=== PATIENT | male | born 1995 | race African-American/Black ===

== ENCOUNTER 2023-06-09 08:03 | Outpatient (AMB) | payer BC, SELFPAY ==
--- NOTE | 2023-06-09 08:08 | A.OFFVIS_ITS ---
Intake Vital Signs 06/09/23 08:12 Height 5 ft 4 in Weight 279 lb 8 oz BMI 48.0 BP 122/82 Blood Pressure Location Lt brachial Position Sitting Pulse 90 Pulse Source Pulse Oximeter Pulse Oximetry (%) 97 Oxygen Delivery Method Room Air Intake Visit Reasons: [employer] SNORING - LVM Intake Note: NPV to be checked for Sleep Apnea,for DOT licences [employer] Supervisor Required: No Allergies Seasonal Allergies Allergy (Intermediate, Verified 06/09/23 08:10) Sneezing HPI HPI Comments History of Present Illness Details 28 y/o male patient with pre-diabetic pr esents for new in-person visit for sleep consultation. 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 He had physical done for his job and recommended to have sleep study due to larger neck size and high mallampati grade. Pt reports loud snoring and daytime sleepiness. He has difficulty to drive long distance (2-3 hrs driving) and uses Monster drink to stay awake. Pt reports that he had tonsillectomy 6 years ago, and it helped him to breathe much better. Sleep questionnaire: Have you ever been diagnosed with a sleep disorder? No. Have you ever had a sleep study in the past? No. Have you ever been treated for a sleep disorder? No. Do you take medications for a sleep disorder? No. Do you snore? Yes. Do you wake up gasping at night? No Do you have episodes of apneas? Yes. If yes, are they witnessed? Yes. Do you have episodes of nocturnal chest pain or dyspnea? No. Do you have difficulty initiating sleep? No. Do you have difficulty maintaining sleep? No. Do you wake up tired? Yes, sometimes. Do you have headaches upon awakening? No. Do you wake up with dry mouth or throat? No. Do you have GERD? No. Do you have nocturia? No. Do you have nocturnal leg cramps? No. Do you have symptoms of restless legs? Yes. Do you act out your dreams? No. Sleep hygiene questionnaire: What is your usual sleep routine? Usual bedtime is at 10 -11 pm; Usual wake up time is at 5 am. Do you take naps? Yes, sometimes. Is your sleep environment cool, dark, and quiet? Yes. Do you exercise? No. Do you take caffeine or other stimulants? Yes, Monster, coffee sometimes. Do you use electronics in bed? Yes. What is your work schedule? 6 am up to 9 pm Hypersomnolence questionnaire: Do you have daytime tiredness or fatigue? Yes. Do you easily fall asleep when inactive? Yes, when he drive long distance. Have you ever had episodes of sudden weakness? No. Have you ever had episodes of sudden weakness associated with strong emotions? No. PFSH Surgical History (Updated 06/09/23 @ 08:10 by Elayne Hopkins CMA) S/P tonsillectomy Family History (Updated 06/09/23 @ 08:12 by Elayne Hopkins CMA) Mother Diabetes Maternal Grandfather Diabetes Maternal Grandmother Diabetes Review of Systems Const All systems reviewed & are unremarkable except as noted in HPI and below ENT Reports Normal hearing present Neuro Reports Normal hearing present Physical Exam Vital Signs: Last Vital Signs Pulse 90 06/09/23 08:12 BP 122/82 06/09/23 08:12 Pulse Ox 97 06/09/23 08:12 Oxygen Delivery Method Room Air 06/09/23 08:12 BMI result Body Mass Index 48.0 Const General: cooperative Nutritional Appearance: obese Orientation/consciousness: patient oriented x3 HEENT Throat: Yes other (mallampati grade 4) Neck Neck: Yes full ROM and Yes supple Resp Effort & Inspection: normal respiratory effort and able to speak in complete sentences Neuro General: patient oriented x3 and gait normal Cranial nerves: Yes Bilaterally intact EOM present, Yes Normal facial strength present, Yes Midline tongue present, Yes Symmetric palate elevation present, Yes Normal hearing present, Yes Ability to bilaterally rotate head present and Yes Ability to bilaterally elevate shoulders present Cognition (Neuro): normal cognition Gait exam (Neuro): Normal gait present Motor exam (neuro): 5/5 motor strength present throughout, Pronator motor function not present and no tremor noted Psych Appearance: grossly normal Mental Status: mental status grossly normal Speech and movement: Normal speech and movement present Affect: normal affect Attitude: cooperative Assessment & Plan Assessment & Plan (1) Daytime sleepiness: Code(s): R40.0 - Somnolence (2) Loud snoring: Code(s): R06.83 - Snoring (3) Obesity, Class III, BMI 40-49.9 (morbid obesity): Code(s): E66.01 - Morbid (severe) obesity due to excess calories Plan Pt is advised to undergo in lab sleep study to assess for sleep apnea. Will f/u with pt after study to discuss results and appropriate treatment options. Sleep hygiene education provided, limit electronic use before bedtime. Wt reduction advised. Pt to call with any worsening concerns or questions. Orders: Orders RT PSG in-lab sleep titration Today E66.01 - Morbid (severe) obesity due to excess calories, R06.83 - Snoring, R40.0 - Somnolence, R73.03 - Prediabetes Coding Level of Care Code New Pt Level 4 (40523) Diagnoses Daytime sleepiness R40.0 Loud snoring R06.83 Obesity, Class III, BMI 40-49.9 (morbid obesity) E66.01
[2023-06-09 08:12] VITALS: BP 122/82; PULSE 90; O2SAT 97; BMI 48.0
== END 2023-06-09 08:39 | disposition home or self-care (01) ==
PROVIDERS: PCP Physician Assistant; Visit Provider Nurse Practitioner Family
DX: R40.0 Somnolence (principal); R06.83 Snoring; E66.01 Morbid (severe) obesity due to excess calories
CPT/HCPCS: 99204

== ENCOUNTER → 2023-06-09 08:03 | Outpatient (BNVA) | payer BC, SELFPAY | PROVIDERS: PCP Physician Assistant; Visit Provider Nurse Practitioner Family ==

== ENCOUNTER → 2023-06-29 20:30 | Outpatient (REF) | payer BC, SELFPAY | LOC: HO.SL 20:30 | PROVIDERS: Visit Provider Nurse Practitioner Family | DX: G47.33 Obstructive sleep apnea (adult) (pediatric) (principal); E66.01 Morbid (severe) obesity due to excess calories; R06.83 Snoring; R73.03 Prediabetes; R40.0 Somnolence | CPT/HCPCS: 95811 ==

== ENCOUNTER → 2023-06-30 03:02 | Outpatient (BNV) | payer BC, SELFPAY | PROVIDERS: Visit Provider Psychiatry & Neurology Neurology | DX: G47.33 Obstructive sleep apnea (adult) (pediatric) (principal) | CPT/HCPCS: 95811 ==

== ENCOUNTER 2023-10-07 10:44 | Outpatient (AMB) | payer BC, SELFPAY ==
--- NOTE | 2023-10-07 10:59 | MHC.OFFVIS ---
Intake Vital Signs 10/07/23 11:04 Height 5 ft 4 in Weight 278 lb 2 oz BMI 47.7 BP 124/80 Blood Pressure Location Lt brachial Position Sitting Pulse 91 Pulse Source Pulse Oximeter Pulse Oximetry (%) 96 Oxygen Delivery Method Room Air Intake Visit Reasons: 3m f/u SNORING - CONF Intake Note: Patient presents for 3 month f/u. Allergies Seasonal Allergies Allergy (Intermediate, Verified 10/07/23 11:03) Sneezing HPI HPI Comments History of Present Illness Details 28 y/o male patient presents for follow up of sleep study. The PSG sleep study result was significant for a severe degree of sleep apnea. The AHI was 26/hr and oxygen glenn was 84%. APAP [id number] ordered. Pt reports his insurance did not cover CPAP, but he paid deposit and hold for CPAP order now. He states that he had financial difficulty over the last couple of month, but will pay the monthly payment and start CPAP soon. Pt states that he practice sleep hygiene, and tries to lose wt. [facility], [facility] Surgical History S/P tonsillectomy Family History Mother Diabetes Maternal Grandfather Diabetes Maternal Grandmother Diabetes Review of Systems Const All systems reviewed & are unremarkable except as noted in HPI and below ENT Reports Normal hearing present Neuro Reports Normal hearing present Physical Exam Vital Signs: Last Vital Signs Pulse 91 10/07/23 11:04 BP 124/80 10/07/23 11:04 Pulse Ox 96 10/07/23 11:04 Oxygen Delivery Method Room Air 10/07/23 11:04 BMI result Body Mass Index 47.7 Const General: cooperative Nutritional Appearance: obese Orientation/consciousness: patient oriented x3 HEENT Throat: Yes other (mallampati grade 4) Neck Neck: Yes full ROM and Yes supple Resp Effort & Inspection: normal respiratory effort and able to speak in complete sentences Neuro General: patient oriented x3 and gait normal Cranial nerves: Yes Bilaterally intact EOM present, Yes Normal facial strength present, Yes Midline tongue present, Yes Symmetric palate elevation present, Yes Normal hearing present, Yes Ability to bilaterally rotate head present and Yes Ability to bilaterally elevate shoulders present Cognition (Neuro): normal cognition Gait exam (Neuro): Normal gait present Motor exam (neuro): 5/5 motor strength present throughout, Pronator motor function not present and no tremor noted Psych Appearance: grossly normal Mental Status: mental status grossly normal Speech and movement: Normal speech and movement present Affect: normal affect Attitude: cooperative Assessment & Plan Assessment & Plan (1) ALIDA (obstructive sleep apnea): Comment: Severe degree of sleep apnea. The AHI was 26/hr and oxygen glenn was 84%. Code(s): G47.33 - Obstructive sleep apnea (adult) (pediatric) Plan He will start APAP 5-20 cmH2O soon, the order is on hold. Stressed compliance, use CPAP nightly and more than 4 hrs. Continue to practice sleep hygiene. Wt reduction advised. Coding Level of Care Code Est Pt Level 3 (05647) Diagnoses ALIDA (obstructive sleep apnea) G47.33
[2023-10-07 11:04] VITALS: BP 124/80; PULSE 91; O2SAT 96; BMI 47.7
== END 2023-10-07 11:24 | disposition home or self-care (01) ==
PROVIDERS: PCP Physician Assistant; Visit Provider Nurse Practitioner Family
DX: G47.33 Obstructive sleep apnea (adult) (pediatric) (principal)
CPT/HCPCS: 99213

== ENCOUNTER → 2023-10-07 10:44 | Outpatient (BNVA) | payer BC, SELFPAY | PROVIDERS: PCP Physician Assistant; Visit Provider Nurse Practitioner Family | DX: E66.01 Morbid (severe) obesity due to excess calories (principal); R06.83 Snoring; R73.03 Prediabetes; R40.0 Somnolence ==

== ENCOUNTER 2024-09-10 14:47 | Outpatient (AMB) | payer BC, SELFPAY ==
--- NOTE | 2024-09-10 14:55 | A.OFFVIS_ITS ---
Vital Signs 09/10/24 14:56 Height 5 ft 4 in Weight 274 lb BMI 47.0 BP 140/90 H Blood Pressure Location Rt brachial Position Sitting Pulse 92 Pulse Source Pulse Oximeter Pulse Oximetry (%) 96 Oxygen Delivery Method Room Air Intake Visit Reasons: follow up Intake Note: Patient presents for follow up Allergies Seasonal Allergies Allergy (Intermediate, Verified 09/10/24 14:57) Sneezing HPI Comments Details: 29 y/o male patient presents for follow up of sleep study.His last visit was in Sep 2023. Jun 2023 -The PSG sleep study result was significant for a severe degree of sleep apnea. The AHI was 26/hr and oxygen glenn was 84%. Due to him moving he was unable to get CPAP and his insurance did not cover either. Now he also has a HSA account and wants to try CPAP. Clinically he reports snoring , poor sleep and daytime fatigue. [facility] Surgical History S/P tonsillectomy Family History Mother Diabetes Maternal Grandfather Diabetes Maternal Grandmother Diabetes Review of Systems ENT Reports Normal hearing present Neuro Reports Normal hearing present Physical Exam Vital Signs: Last Vital Signs Pulse 92 09/10/24 14:56 BP 140/90 H 09/10/24 14:56 Pulse Ox 96 09/10/24 14:56 Oxygen Delivery Method Room Air 09/10/24 14:56 BMI result Body Mass Index 47.0 Const General: cooperative Nutritional Appearance: obese Orientation/consciousness: patient oriented x3 HEENT Throat: Yes other (mallampati grade 4) Neck Neck: Yes full ROM and Yes supple Resp Effort & Inspection: normal respiratory effort and able to speak in complete sentences Neuro General: patient oriented x3 and gait normal Cranial nerves: Yes Bilaterally intact EOM present, Yes Normal facial strength present, Yes Midline tongue present, Yes Symmetric palate elevation present, Yes Normal hearing present, Yes Ability to bilaterally rotate head present and Yes Ability to bilaterally elevate shoulders present Cognition (Neuro): normal cognition Gait exam (Neuro): Normal gait present Motor exam (neuro): 5/5 motor strength present throughout, Pronator motor function not present and no tremor noted Assessment & Plan Assessment & Plan (1) ALIDA (obstructive sleep apnea): Comment: Severe degree of sleep apnea. The AHI was 26/hr and oxygen glenn was 84%. Code(s): G47.33 - Obstructive sleep apnea (adult) (pediatric) Category: Medical Plan Start APAP 5-20 cmH2O Stressed compliance, use CPAP nightly and more than 4 hrs. Continue to practice sleep hygiene. Wt reduction advised. Coding Level of Care Code Est Pt Level 4 (88315) Diagnoses ALIDA (obstructive sleep apnea) G47.33
[2024-09-10 14:56] VITALS: BP 140/90; PULSE 92; O2SAT 96; BMI 47.0
== END 2024-09-10 15:25 | disposition home or self-care (01) ==
PROVIDERS: PCP Physician Assistant; Visit Provider Psychiatry & Neurology Neurology
DX: G47.33 Obstructive sleep apnea (adult) (pediatric) (principal)
CPT/HCPCS: 99214

== ENCOUNTER 2024-11-08 14:22 | Outpatient (AMB) | payer BC, SELFPAY ==
--- NOTE | 2024-11-08 14:30 | A.OFFVIS_ITS ---
Vital Signs 11/08/24 14:33 Height 5 ft 4 in Weight 281 lb BMI 48.2 BP 140/86 H Blood Pressure Location Rt brachial Position Sitting Pulse 86 Pulse Source Pulse Oximeter Pulse Oximetry (%) 97 Oxygen Delivery Method Room Air Intake Visit Reasons: follow up Intake Note: Patient presents for follow up ALIDA. Veterans Service Representative Required: No Accompanied by: Self / Same As Patient Allergies Seasonal Allergies Allergy (Intermediate, Verified 11/08/24 14:35) Sneezing HPI Comments Details: 29 y/o male patient presents for follow up of sleep study. Jun 2023 -The PSG sleep study result was significant for a severe degree of sleep apnea. The AHI was 26/hr and oxygen glenn was 84%. He reports snoring, which has improved since he started using CPAP consistently. He is feeling a difference in level of energy, and is more energetic. He no longer falls asleep in long car rides and is not napping during. 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 He washes the nasal mask, replaces the filters and supplies. His pressures are good, temperatures are good. Denies morning headaches and RLS. He is taking Ozempic 2mg subcut. weekly and seeing weight management to learn better meal preparation strategies and less fast food on the go. ALIDA Compliance Report on [employer]: Sep 27, 2024 - Nov 08 2024 Total Avg. use 6 hours and 47 min and total days used 75% Leaks are 0.6 L/min Press are 7.6cmH20 AHI is 1.2 PFSH Surgical History S/P tonsillectomy Family History Mother Diabetes Maternal Grandfather Diabetes Maternal Grandmother Diabetes Review of Systems ENT Reports Normal hearing present Neuro Reports Normal hearing present Physical Exam Vital Signs: Last Vital Signs Pulse 86 11/08/24 14:33 BP 140/86 H 11/08/24 14:33 Pulse Ox 97 11/08/24 14:33 Oxygen Delivery Method Room Air 11/08/24 14:33 BMI result Body Mass Index 48.2 Const General: cooperative Nutritional Appearance: obese Orientation/consciousness: patient oriented x3 HEENT Throat: Yes other (mallampati grade 4) Neck Neck: Yes full ROM and Yes supple Resp Effort & Inspection: normal respiratory effort and able to speak in complete sentences Neuro General: patient oriented x3 and gait normal Cranial nerves: Yes Bilaterally intact EOM present, Yes Normal facial strength present, Yes Midline tongue present, Yes Symmetric palate elevation present, Yes Normal hearing present, Yes Ability to bilaterally rotate head present and Yes Ability to bilaterally elevate shoulders present Cognition (Neuro): normal cognition Gait exam (Neuro): Normal gait present Motor exam (neuro): 5/5 motor strength present throughout, Pronator motor function not present and no tremor noted Results Reviewed Results Reviewed: ALIDA Compliance Report on [employer]: Sep 27, 2024 - Nov 08 2024 Total Avg. use 6 hours and 47 min and total days used 75% Leaks are 0.6 L/min Press are 7.6cmH20 AHI is 1.2 Assessment & Plan Assessment & Plan (1) ALIDA (obstructive sleep apnea): Comment: Severe degree of sleep apnea. The AHI was 26/hr and oxygen glenn was 84%. Code(s): G47.33 - Obstructive sleep apnea (adult) (pediatric) Category: Medical (2) Obesity, Class III, BMI 40-49.9 (morbid obesity): Onset Date: ~11/09/24 Code(s): E66.01 - Morbid (severe) obesity due to excess calories Category: Medical Plan F/U in 6 months Obstructive Sleep apnea [employer] on [employer]. Sleep Hygiene provided BMI is elevated continue on Ozempic 2mg subcutaneous weekly. F/u with weight management, and walking daily. Patient Instructions: Sleep Hygiene: Sleep in a dark room, temperatues below 68 degrees, no devices in bed, limit fluids 2-4 hours prior to bedtime. Continue CPAP compliance daily and more than 6 hours per night. Wash mask, change filters and replace tubing, fill machine with distilled water as needed. Monitor usage data on your [employer]. Coding Level of Care Code Est Pt Level 4 (09040) Diagnoses ALIDA (obstructive sleep apnea) G47.33 Obesity, Class III, BMI 40-49.9 (morbid obesity) E66.01 Time Spent (min) 20
[2024-11-08 14:33] VITALS: BP 140/86; PULSE 86; O2SAT 97; BMI 48.2
== END 2024-11-08 15:04 | disposition home or self-care (01) ==
LOC: HO.HSMS 14:23
PROVIDERS: PCP Physician Assistant; Visit Provider Physician Assistant Medical
DX: G47.33 Obstructive sleep apnea (adult) (pediatric) (principal); E66.01 Morbid (severe) obesity due to excess calories
CPT/HCPCS: 99214

== ENCOUNTER → 2024-11-08 14:22 | Outpatient (BNVA) | payer BC, SELFPAY | PROVIDERS: PCP Physician Assistant; Visit Provider Physician Assistant Medical ==

== ENCOUNTER 2025-05-13 09:56 | Outpatient (AMB) | payer BC, SELFPAY ==
--- OUTSIDE RECORDS SUMMARY | 2025-05-10 08:40 | XMS_ITS | Encounter Summary ---
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 Phone Shannan Silva PA-C Primary Care Provider [phone] Reason for Visit * Reason Comments Complete Physical Exam Encounter Details Date Type Department Care Team ([facility] Contact Info) Description 05/10/2025 8:40 AM EDT Office Visit [address] [phone] Shannan Silva PA-C [address] [place] [phone] Social History Tobacco Use Types Packs/Day Years Used Date Smoking Tobacco: Former Passive Smoke Exposure: Never Smokeless Tobacco: Former Tobacco Cessation:Counseling Given: Yes Alcohol Use Standard Drinks/Week Comments Yes 2 (1 standard drink = 0.6 oz pur e alcohol) Social Connections Answer Date Recorded Connectedness 1 09/14/2023 Financial Resource Strain Answer Date R ecorded Financial Resource Strain 1 2023 Stress Answer Date Recorded Stress 1 09/14/2023 Physical Activity Answer Date Recorded Physical Activity 0 04/21/2019 Food Insecurity Answer Date Recorded Food 1 09/14/2023 Transportation Needs Answer Date Record ed Transportation 1 09/14/2023 Housing Stability Answer Date Recorded Housing 1 09/14/2023 Safety and Environment Answer Date Terrance rded Safety 0 12/21/2022 Utilities Answer Date Recorded Utilities 1 09/14/2023 Employment Answer Date Recorded Employment 0 04/21/2019 Sex and Gender Information Value Date Recorded Sex Assigned at Male 10/09/2018 6:48 AM PST Legal Sex Male 7:04 AM PDT Gender Identity Male 10/09/2018 6:48 AM PST Sexual Orientation Straight 10/09/2018 6: 48 AM PST documented as of this encounter Last Filed Vital Signs Vital Sign Reading Time Taken Comments Blood Pressure 112/74 05/10/2025 8:49 AM EDT Pulse 99 05/10/2025 8:49 AM EDT Temperature 37.6 C (99.7 F) 05/10/2025 8:49 AM EDT Respiratory Rate 16 05/10/2025 8:49 AM EDT Oxygen Saturation 94% 05/10/2025 8:49 AM EDT Inhaled Oxygen Concentration - - Weight 122.5 kg (270 lb) 05/10/2025 8:49 AM EDT Height 162.6 cm (5' 4 ) 05/10/2025 8:49 AM EDT Body Mass Index 46.35 05/10/2025 8:49 AM EDT documented in this encounter Miscellaneous Notes * Patient Instructions - Shannan Silva PA-C - 05/10/2025 8:55 AM EDT If you are not able to keep your appointment please call 24-48 hours before your appointment to cancel or reschedule. Health Maintenance Due Topic Date Due Anxiety Screening Never done Imm-Pneumococcal (2 of 2 - PCV) 07/30/2022 Dental Prophy 02/26/2023 Dental Examination 08/28/2023 Urine Albumin Creatinine Ratio Screening 09/14/2024 Diabetes Foot Exam 02/20/2025 Annual Wellness (Adult): Indicated (All Coverage) 02/20/2025 Mid-RRSBX-72 ( - season) Never done Imm-Influenza (1) 04/29/2025 documented in this encounter Plan of Treatment Not on file documented as of this encounter Procedures Procedure Name Priority Date/Time Associated Diagnosis Comments TSH W/RFLX FREE T4 Routine 05/10/2025 9: 10 AM EDT Routine general medical examination at a health care facility Mild vitamin D deficiency Non morbid obesity Type 2 diabetes mellitus without complication, without long-term current use of insulin ([facility]) TSH elevation 01/2016 MICROALBUMIN/CREATININ E RATIO, URINE, RANDOM Routine 05/10/2025 9:10 AM EDT Routine general medical examination at a health care facility Mild vitamin D deficiency Non morbid obesity Type 2 diabetes mellitus without complication, without long-term current use of insulin ([facility]) TSH elevation 01/2016 BLOOD COUNT COMPLETE AUTO&AUTO DIFRNTL WBC Routine 05/10/2025 9:10 AM EDT Routine general medical examination at a health care facility Mild vitamin D deficiency Non morbid obesity Type 2 diabetes mellitus without complication, without long-term current use of insulin ([facility]) TSH elevation 01/2016 HEMOGLOBIN GLYCOSYLATED A1C Routine 05/10/2025 9:10 AM EDT Routine general medical examination at a health care facility Mild vitamin D deficiency Non morbid obesity Type 2 diabetes mellitus without complication, without long-term current use of insulin ([facility]) TSH elevation 01/2016 25 HYDROXY INCLUDES FRACTIONS IF PERFORMED Routine 05/10/2025 9:10 AM EDT Routine general medical examination at a health care facility Mild vitamin D deficiency Non morbid obesity Type 2 diabetes mellitus without complication, without long-term current use of insulin ([facility]) TSH elevation 01/2016 LIPID PANEL Routine 05/10/2025 9:10 AM EDT Routine general medical examination at a health care facility Mild vitamin D deficiency Non morbid obesity Type 2 diabetes mellitus without complication, without long-term current use of insulin ([facility]) TSH elevation 01/2016 COMPREHENSIVE METABOLIC PANEL Routine 05/10/2025 9:10 AM EDT Routine general medical examination at a health care facility Mild vitamin D deficiency Non morbid obesity Type 2 diabetes mellitus without complication, without long-term current use of insulin ([facility]) TSH elevation 01/2016 documented in this encounter Results * (ABNORMAL) Vitamin D, 25-Hydroxy Routine (05/10/2025 9:10 AM EDT) VITAMIN D, 25-OH, TOTAL 14(L) 30 - 100 ng/mL 05/11/2025 6:33 AM EDT [employer] Blood Blood / Unknown 05/10/2025 9 :10 AM EDT 05/11/2025 4:09 AM EDT [employer]ative [employer] - 05/11/2025 6:57 AM EDT FASTING:YES Vitamin D Status 25-OH Vitamin D: . Deficiency: <20 ng/mL Insufficiency: 20 - 29 ng/mL Optimal: > or = 30 ng/mL . For 25-OH Vitamin D testing on patients on D2-supplementation and patients for whom quantitation of D2 and D3 fractions is required, the QuestAssureD(TM) 25-OH VIT D, (D2,D3), LC/MS/MS is recommended: order code [id number] (patients >2yrs). . See Note 1 . Note 1 . For additional information, please refer to http://education.[employer]/faq/JKD798 (This link is being provided for informational/ educational purposes only.) us Shannan Silva PA-C LAB - BLOOD DRAW Final Resul t [employer] [address] [place] [address], [facility] [address] [phone] * (ABNORMAL) BLOOD COUNT COMPLETE AUTO&AUTO DIFRNTL WBC Routine (05/10/2025 9:10 AM EDT) WHITE BLOOD CELL COUNT 7.4 3.8 - 10.8 Thousand/ uL 05/11/2025 3:08 AM EDT [facility] RED BLOOD CELL COUNT 4.87 4.20 - 5.80 Million/u L 05/11/2025 3:08 AM EDT [employer] [facility] HEMOGLOBIN 14.3 13.2 - 17.1 g/dL 05/11/2025 3:08 AM EDT [facility] HEMATOCRIT 43.3 38.5 - 50.0 % 05/11/2025 3:08 AM EDT [facility] MCV 88.9 80.0 - 100.0 fL 05/11/2025 3:08 AM EDT [facility] MCH 29.4 27.0 - 33.0 pg 05/11/2025 3:08 AM [employer] [facility] MCHC 33.0 32.0 - 36.0 g/dL 05/11/2025 3:08 AM [employer] [facility] RDW 12.9 11.0 - 15.0 % 05/11/2025 3:08 AM [employer] [facility] PLATELET COUNT 437(H) 140 - 400 Thousand/ uL 05/11/2025 3:08 AM [employer] [facility] MPV 9.7 7.5 - 12.5 fL 05/11/2025 3:08 AM [employer] [facility] ABSOLUTE NEUTROPHILS 3,774 1,500 - 7,800 cells/uL 05/11/2025 3:08 AM [employer] [facility] ABSOLUTE LYMPHOCYTES 2,842 850 - 3,900 cells/uL 05/11/2025 3:08 AM [employer] [facility] ABSOLUTE MONOCYTES 503 200 - 950 cells/uL 05/11/2025 3:08 AM [employer] [facility] ABSOLUTE EOSINOPHILS 222 15 - 500 cells/uL 05/11/2025 3:08 AM [employer] [facility] ABSOLUTE BASOPHILS 59 0 - 200 cells/uL 05/11/2025 3:08 AM [employer] [facility] NEUTROPHILS PCT 51 % 3:08 AM [employer] [facility] LYMPHOCYTES 38.4 % 05/11/2025 3:08 AM [employer] MONOCYTES 6.8 % 05/11/2025 3:08 AM [employer] [facility] EOSINOPHILS 3.0 % 05/11/2025 3:08 AM [employer] [facility] BASOPHILS 0.8 % 05/11/2025 3:08 AM [employer] [facility] Blood Blood / Unknown 05/10/2025 9 :10 AM EDT 05/11/2025 2:53 AM EDT [facility] - 05/11/2025 3:09 AM EDT FASTING:YES For adults, a slight decrease in the calculated MCHC value (in the range of 30 to 32 g/dL) is most likely not clinically significant; however, it should be interpreted with caution in correlation with other red cell parameters and the patient's clinical condition. us Shannan Silva PA-C LAB - BLOOD DRAW Final Resul t [facility] [address] [address], [employer] [facility] [address] [place] [address] * (ABNORMAL) COMPREHENSIVE METABOLIC PANEL Routine (05/10/2025 9:10 AM EDT) Pathologist [facility] GLUCOSE 118(H) 65 - 99 mg/dL 05/11/2025 5:19 AM EDT [employer] [facility] UREA NITROGEN (BUN) 11 7 - 25 mg/dL 05/11/2025 5:19 AM [employer]Dog Digital [facility] CREATININE (blood) 0.81 0.60 - 1.26 mg/dL 05/11/2025 5:19 AM EDT [employer] [facility] EGFR 121 > OR = 60 mL/min/1. 73m2 05/11/2025 5:19 AM [employer] [facility] BUN/CREATININE RATIO SEE NOTE: 6 - 22 (calc) 05/11/2025 5:19 AM EDT [employer] [facility] SODIUM 139 135 - 146 mmol/L 05/11/2025 5:19 AM [employer] [facility] POTASSIUM 4.6 3.5 - 5.3 mmol/L 05/11/2025 5:19 AM [employer] [facility] CHLORIDE 103 98 - 110 mmol/L 05/11/2025 5:19 AM [employer] [facility] CARBON DIOXIDE 29 20 - 32 mmol/L 05/11/2025 5:19 AM [employer] [facility] CALCIUM 10.1 8.6 - 10.3 mg/dL 05/11/2025 5:19 AM [employer]pcover [facility] PROTEIN, TOTAL 8.1 6.1 - 8.1 g/dL 05/11/2025 5:19 AM [employer] [facility] ALBUMIN 4.9 3.6 - 5.1 g/dL 05/11/2025 5:19 AM [employer] GLOBULIN 3.2 1.9 - 3.7 g/dL (calc) 05/11/2025 5:19 AM [employer]Tripcover [facility] ALBUMIN/GLOBULI N RATIO 1.5 1.0 - 2.5 (calc) 05/11/2025 5:19 AM EDT [facility] BILIRUBIN, TOTAL 0.5 0.2 - 1.2 mg/dL 05/11/2025 5:19 AM EDT [facility] ALKALINE PHOSPHATASE 55 36 - 130 U/L 05/11/2025 5:19 AM EDT [facility] AST 21 10 - 40 U/L 05/11/2025 5:19 AM EDT [facility] ALT 37 9 - 46 U/L 05/11/2025 5:19 AM EDT [facility] Blood Blood / Unknown 05/10/2025 9 :10 AM EDT 05/11/2025 4:09 AM EDT [employer] [facility] - 05/11/2025 5:24 AM EDT FASTING:YES . Fasting reference interval . For someone without known diabetes, a glucose value between 100 and 125 mg/dL is consistent with prediabetes and should be confirmed with a follow-up test. . Not Reported: BUN and Creatinine are within reference range. . us Shannan Silva PA-C LAB - BLOOD DRAW Final Resul t [facility] [address] [address], [facility] [address] [address] * (ABNORMAL) LIPID PANEL Routine (05/10/2025 9:10 AM EDT) CHOLESTEROL, TOTAL 221(H) <200 mg/dL 05/11/2025 5:19 AM EDT [facility] HDL CHOLESTEROL 47 > OR = 40 mg/dL 05/11/2025 5:19 AM EDT [facility] TRIGLYCERIDES 161(H) <150 mg/dL 05/11/2025 5:19 AM EDT [facility] LDL-CHOLESTEROL 144(H) mg/dL (calc) 05/11/2025 5:19 AM EDT [facility] CHOL/HDLC RATIO 4.7 <5.0 (calc) 05/11/2025 5:19 AM EDT [facility] NON-HDL CHOLESTEROL 174(H) <130 mg/dL (calc) 05/11/2025 5:19 AM EDT [employer] Blood Blood / Unknown 05/10/2025 9 :10 AM EDT 05/11/2025 4:09 AM EDT [employer]ative [employer] - 05/11/2025 5:24 AM EDT FASTING:YES Reference range: <100 . Desirable range <100 mg/dL for primary prevention; <70 mg/dL for patients with CHD or diabetic patients with > or = 2 CHD risk factors. . LDL-C is now calculated using the Dayana calculation, which is a validated novel method providing better accuracy than the Friedewald equation in the estimation of LDL-C. Cayetano SS et al. ANAT. 2013;310(19): 9041-0956 (http://education.[employer]/faq/OHG912) For patients with diabetes plus 1 major ASCVD risk factor, treating to a non-HDL-C goal of <100 mg/dL (LDL-C of <70 mg/dL) is considered a therapeutic option. Shannan Silva PA-C LAB - BLOOD DRAW Final Resul t Performing Organization Address City/[facility] Co de Phone Number [facility] [address] [place] [phone], [employer] [address] [place] [phone] * TSH W/RFLX FREE T4 Routine (05/10/2025 9:10 AM EDT) TSH W/REFLEX TO FT4 1.72 0.40 - 4.50 mIU/L 05/11/2025 6:33 AM EDT [employer] Blood Blood / Unknown 05/10/2025 9 :10 AM EDT 05/11/2025 4:09 AM EDT [employer] - 05/11/2025 6:57 AM EDT FASTING:YES Shannan Silva PA-C LAB - BLOOD DRAW Final Resul t Performing Organization Address City/[facility] Co de Phone Number [facility] [address] [address], [facility] [address] [phone] * (ABNORMAL) HEMOGLOBIN GLYCOSYLATED A1C Routine (05/10/2025 9:10 AM EDT) HEMOGLOBIN A1C 6.2(H) <5.7 % 05/11/2025 6:08 AM EDT [facility] Blood Blood / Unknown 05/10/2025 9 :10 AM EDT 05/11/2025 2:53 AM EDT [address] [employer] - 05/11/2025 6:17 AM EDT FASTING:YES For someone without known diabetes, a hemoglobin A1c value between 5.7% and 6.4% is consistent with prediabetes and should be confirmed with a follow-up test. . For someone with known diabetes, a value <7% indicates that their diabetes is well controlled. A1c targets should be individualized based on duration of diabetes, age, comorbid conditions, and other considerations. . This assay result is consistent with an increased risk of diabetes. . Currently, no consensus exists regarding use of hemoglobin A1c for diagnosis of diabetes for children. . Shannan Silva PA-C LAB - BLOOD DRAW Final Resul t [employer] [address] [address], [employer] [address] [phone] * MICROALBUMIN/CREATININE RATIO, URINE, RANDOM Urine Routine (05/10/2025 9:10 AM EDT) CREATININE, RANDOM URINE 183 20 - 320 mg/dL 05/11/2025 4:55 PM EDT [facility] MICROALBUMIN 3.9 mg/dL 05/11/2025 4:55 PM EDT [facility] MICROALBUMIN/CRE ATININE RATIO, RANDOM URINE 21 <30 mg/g creat 05/11/2025 4:55 PM EDT [facility] Urine Urine specimen / Unknown 05/10/2025 9:10 AM EDT 05/11/2025 3:00 AM EDT [employer]arrative [employer] [facility] [employer] - 05/11/2025 5:04 PM EDT FASTING:YES Reference Range Not established . The ADA defines abnormalities in albumin excretion as follows: . Albuminuria Category Result (mg/g creatinine) . Normal to Mildly increased <30 Moderately increased 30-299 Severely increased > OR = 300 . The ADA recommends that at least two of three specimens collected within a 3-6 month period be abnormal before considering a patient to be within a diagnostic category. Shannan Silva PA-C LAB URINE AMBULATORY Final R esult [facility] [address] [address], [employer] [address] [address] documented in this encounter Visit Diagnoses Diagnosis Routine general medical examination at a health care facility- Primary Mild vitamin D deficiency Unspecified vitamin D deficiency Non morbid obesity Type 2 diabetes mellitus without complication, without long-term current use of insulin ([facility]) TSH elevation 01/2016 Other abnormal blood chemistry documented in this encounter Additional Health Concerns Assessment Noted Time PHQ-9 Depression Total Score: 0 05/10/20 25 8:49 AM PDT documented as of this encounter Care Teams Diesel Powerplant Mechanic Relationship Specialty Start Date End Date Shannan Silva PA-C [address] [place] [address] PCP - General Internal Medicine 05/19/15 documented as of this encounter
--- NOTE | 2025-05-13 10:01 | A.OFFVIS_ITS ---
Vital Signs 05/13/25 10:09 Height 5 ft 4 in Weight 272 lb 2 oz BMI 46.7 BP 128/88 Blood Pressure Location Lt brachial Position Sitting Pulse 99 Pulse Source Pulse Oximeter Pulse Oximetry (%) 97 Oxygen Delivery Method Room Air Intake Visit Reasons: follow up Intake Note: Patient presents follow up ALIDA. Compliance in chart(77/90days, >=4hrs- 78%, Average Usage- 5hr 36min, Med Pressure-7.7, Med Leaks-4.0, AHI-0.8) Accompanied by: Self / Same As Patient Allergies Seasonal Allergies Allergy (Intermediate, Verified 05/13/25 10:13) Sneezing HPI Comments Details: 29 y/o male patient presents for follow up of sleep apnea. Jun 2023 PSG c/w AHI was 26/hr and oxygen glenn was 84%. He has severe ALIDA. ALIDA Compliance Report January, - Mar 2025 Total Avg use is 5 hours and 36 min and total days used / >4 hours 78% Med Press 7.7cnH20 Leaks are 4.0cmH20 AHI is0.8/hr He washes the mask, rinses hoses, changes filters, fills reservoir with water. His pressures and temperatures are stable. He reports snoring, which has improved since he started using the chin straps and his CPAP consistently. He feels a difference in level of energy, and is more energetic. He no longer falls asleep in long car rides, nor does he take 10-15min naps 2-3x / week. 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 Denies morning headaches. Mood, memory and diet are stable. He has RLS, gets jittery and shakes his leg r>l. He gets pins and needles in the arms bilaterally r>l, he uses his r. arm to lean on when sleeping. He wakes up at night and switches positions to shake his arms to decrease the tingling. He has T2DM, and is on Ozempic 2mg subq weekly. He sees weight management to learn better meal preparation strategies, he is 272lb today. [facility] Surgical History S/P tonsillectomy Family History Mother Diabetes Maternal Grandfather Diabetes Maternal Grandmother Diabetes Review of Systems ENT Reports Normal hearing present Neuro Reports Normal hearing present Physical Exam Vital Signs: Last Vital Signs Pulse 99 05/13/25 10:09 BP 128/88 05/13/25 10:09 Pulse Ox 97 05/13/25 10:09 Oxygen Delivery Method Room Air 05/13/25 10:09 BMI result Body Mass Index 46.7 Const General: cooperative Nutritional Appearance: obese Orientation/consciousness: patient oriented x3 HEENT Throat: Yes other (mallampati grade 4) Eyes Pupils: Equal, round and reactive pupils present Neck Neck: Yes full ROM and Yes supple Resp Effort & Inspection: normal respiratory effort and able to speak in complete sentences Neuro General: patient oriented x3, gait normal and moves all extremities Cranial nerves: Yes Equal, round and reactive pupils present, Yes Normal accommodation reflex present, Yes Bilaterally intact EOM present, Yes Normal facial strength present, Yes Midline tongue present, Yes Symmetric palate elevation present, Yes Normal hearing present, Yes Ability to bilaterally rotate head present and Yes Ability to bilaterally elevate shoulders present Cognition (Neuro): normal cognition Gait exam (Neuro): Normal gait present Motor exam (neuro): 5/5 motor strength present throughout and Normal motor muscle tone present throughout Psych Appearance: grossly normal Mental Status: mental status grossly normal Speech and movement: Normal speech and movement present Thought process: Normal thought process present Thought content: Normal thought content present Results Reviewed Results Reviewed: ALIDA Compliance Report on [employer]: Sep 27, 2024 - Nov 08 2024 Total Avg. use 6 hours and 47 min and total days used 75% Leaks are 0.6 L/min Press are 7.6cmH20 AHI is 1.2 Assessment & Plan Assessment & Plan (1) RLS (restless legs syndrome): Code(s): G25.81 - Restless legs syndrome Category: Medical Plan ALIDA f/u in 6months compliance RLS gabapentin 100mg po daily at bedtime Labs f/u with labs from pcp: [facility] labs Sheila Silva PCP recent labs. Orders: Orders Vitamin B6 Today G25.81 - Restless legs syndrome Homocysteine Today G25.81 - Restless legs syndrome, G47.9 - Sleep disorder, unspecified, R53.83 - Other fatigue Ferritin Today G25.81 - Restless legs syndrome Vitamin D 25-OH Total Today - Restless legs syndrome Vitamin B12 and Folate Today - Restless legs syndrome Vitamin B1 Today - Restless legs syndrome Methylmalonic Acid Today - Restless legs syndrome, G47.9 - Sleep disorder, unspecified, R53.83 - Other fatigue Medications: New gabapentin RLs take one capsule daily at bedtime by mouth. 100 mg PO BEDTIME 30 caps 0RF RLS 1 month MDD 100mg po G2 - Restless legs syndrome Patient Instructions: Sleep Hygiene provided: set a scheduled bedtime and wake time to help regulate the circadian rhythm and balance the release of pituitary hormones. Sleep in a dark room, temperatures below 68 degrees, and no devices n bed. Limit caffeinated products 6 hours prior to bed, and limit fluids 2-4 hours prior to bed. Gentle night yoga, diffusing essential oils, and playing soft music can be relaxing. Coding Level of Care Code Est Pt Level 4 (83725) Diagnoses RLS (restless legs syndrome)
[2025-05-13 10:09] VITALS: BP 128/88; PULSE 99; O2SAT 97; BMI 46.7
--- OUTSIDE RECORDS SUMMARY | 2025-05-13 12:21 | XMS_ITS | Clinical Summary ---
Author Organization [facility] Address [address] [place] [address] Care Team Providers Care Fishing Game Warden Name Role Phone Shannan Silva PA-C Primary Care Provider [phone] Source Comments PLEASE NOTE, if this patient is a minor, it may be UNLAWFUL to discuss sensitive information that is contained in these records (such as FAMILY PLANNING, MENTAL HEALTH or SUBSTANCE ABUSE) with the minor patient's parent or other person without the patient's specific authorization.[facility] Allergies No known active allergies Medications alcohol swabs Use qd, dx E11.9 50 Each 11 3 Active lancets (FREESTYLE LANCETS) 28 gauge Freestyle lite lancets, use QD, dx E11.9 50 Each 11 3 Active blood sugar diagnostic strips 1 Each daily. Freestyle lite strips use QD, dx E11.9 50 Each 11 3 Active blood-glucose meter monitoring kit 1 Each daily. Freestyle lite meter, disp 1, lifetime need, dx E11.9 1 Each 3 Active semaglutide (OZEMPIC) 2 mg/dose (8 mg/3 mL) pen injectorIndicat ions:Type 2 diabetes mellitus without complication, without long-term current use of insulin ([facility]) INJECT 2 MG INTO THE SKIN ONCE A WEEK. 9 mL 6 5 Active Active Problems Problem Noted Date Diagnosed Date ALIDA (obstructive sleep apnea) 09/14/2023 Type 2 diabetes mellitus wit hout complication, without long-term current use of insulin ([facility]) 06/22/2023 TSH elevation 01/201602/08/2016 Non morbid obesity 07/29/2014 Mild vitamin D deficiency 07/29/2014 Seasonal allergies 07/29/2014 Encounters Date Type Department Care Team Description 05/10/2025 8:40 AM EDT Office Visit [address] [phone] Shannan Silva PA-C from Last 3 Months Immunizations Immunization Administration Dates Next Due Flu, Preservative Free 06/06/2017 Hep B,adult,adjuvanted (HEPLISAV) 01/20/2023, INFLUENZA, SEASONAL, INJECTABLE 07/29/2014 PNEUMOCOCCAL CONJUGATE PCV 20 (Prevnar 20) 05/10 PNEUMOCOCCAL POLYSACCHARIDE PPV23 (Pneumovax 23) 07/30/2021 TDAP 05/19/2015 Family History Medical History Relation Name Comments No Known Problems Mother Relation Name Status Comments Mother Alive Social History Tobacco Use Types Packs/Day Years [...] Orientation Straight 10/09/2018 6: 48 AM PST Last Filed Vital Signs Vital Sign Reading [...] Mass Index 46.35 05/10/2025 8:49 AM EDT Plan of Treatment Health Maintenance Due Date Last Done Comments Anxiety Screening 1993 Dental FMX/Pano 1993 Dental Prophy 02/26/2023 08/26/2022, 02/23/2022 Dental BW 08/28/2023 08/26/2022 Dental Examination 08/28/2023 08/26/2022 Dental Perio Charting 08/28/2023 08/26/2022 Annual Wellness (Adult): Indicated (All Coverage) 02/20/2025 02/21/2024, 12/21/2022, 07/30/2021, Additional history exists Diabetes Foot Exam 02/20/2025 02/21/2024, 0 09/15/2023, 06/26/2023 Imm-Influenza (#1) 2025 06/06/2017, 1 09/29/2013, 07/29/2014 Imm-DTaP/Tdap/Td (2 - Td or Tdap) 05/19/2025 05/19/2015 [id number] () 08/09/2025 Postponed from 04/29/2025 (Patient postponement) Hemoglobin A1c 11/07/2025 05/10/2025, 051 11/2024, 02/21/2024, Additional history exists Retinopathy Screening 01/23/2026 01/23/2025, 024 Hypertension Screening (#1) 05/10/2026 07/29/2014 Serum Creatinine 05/10/2026 05/10/2025, , 02/21/2024, Additional history exists Tobacco Screening 05/10/2026 05/10/2025 Urine Albumin Creatinine Ratio Screening 05/10/2026 05/10/2025, 09/14/2023 Lipid Screening 05/10/2028 05/10/2025, 12/27, 02/21/2024, Additional history exists Hepatitis C Screening Completed 07/29/2014 HIV Screening Completed 07/30/2021 Imm-Hepatitis B Completed 01/20/2023, 12/21/2022 Alcohol and Drug Screen Completed 05/10/20 25, 01/02/2025, 09/14/2023, Additional history exists Depression Annual Screen Completed 025, 07/29/2014 (Declined) Imm-Pneumococcal Completed 05/10/2025, 07/30/2021 Imm-HPV Discontinued Procedures Procedure Name Priority Date/Time Associated Diagnosis Comments 25 HYDROXY INCLUDES FRACTIONS IF PERFORMED Routine 05/10/2025 9:10 AM EDT Routine general medical examination at a health care facility Mild vitamin D deficiency Non morbid obesity Type 2 diabetes mellitus without complication, without long-term current use of insulin ([facility]) TSH elevation 01/2016 BLOOD COUNT COMPLETE AUTO&AUTO DIFRNTL WBC Routine 05/10/2025 9:10 AM EDT Routine general medical examination at a health care facility Mild vitamin D deficiency Non morbid obesity Type 2 diabetes mellitus without complication, without long-term current use of insulin ([facility]) TSH elevation 01/2016 COMPREHENSIVE METABOLIC PANEL Routine 05/10/2025 9:10 AM EDT Routine general medical examination at a health care facility Mild vitamin D deficiency Non morbid obesity Type 2 diabetes mellitus without complication, without long-term current use of insulin ([facility]) TSH elevation 01/2016 LIPID PANEL Routine 05/10/2025 9:10 AM EDT Routine general medical examination at a health care facility Mild vitamin D deficiency Non morbid obesity Type 2 diabetes mellitus without complication, without long-term current use of insulin ([facility]) TSH elevation 01/2016 TSH W/RFLX FREE T4 Routine 05/10/2025 9: 10 AM EDT Routine general medical examination at a health care facility Mild vitamin D deficiency Non morbid obesity Type 2 diabetes mellitus without complication, without long-term current use of insulin ([facility]) TSH elevation 01/2016 HEMOGLOBIN GLYCOSYLATED A1C Routine 05/10/2025 9:10 AM EDT Routine general medical examination at a health care facility Mild vitamin D deficiency Non morbid obesity Type 2 diabetes mellitus without complication, without long-term current use of insulin ([facility]) TSH elevation 01/2016 MICROALBUMIN/CREATININE RATIO, URINE, RANDOM Routine 05/10/2025 9:10 AM EDT Routine general medical examination at a health care facility Mild vitamin D deficiency Non morbid obesity Type 2 diabetes mellitus without complication, without long-term current use of insulin ([facility]) TSH elevation 01/2016 SLOT AMBASSADOR REPORT 3:00 AM EDT COMP PERIODONTAL EVALUATION - NEW/EST PATIENT Routine 08/26/2022 2:20 PM EST Need for prophylactic measure BITEWINGS - FOUR RADIOGRAPHIC IMAGES Routine 08/26/2022 2:20 PM EST Need for prophylactic measure PROPHYLAXIS - ADULT Routine 08/26/2022 2 :20 PM EST Need for prophylactic measure PERIODIC ORAL EVALUATION ESTABLISHED PATIENT Routine 08/26/2022 2:20 PM EST Need for prophylactic measure HIV 1/2 AG & AB W/RFLX (4TH GEN) Routine 07/30/2021 10:30 AM EST Routine general medical examination at a health care facility HEPATITIS A,B,C PANEL Routine 07/29/2014 4:50 PM EST Routine general medical examination at a health care facility Obesity from Last 3 Months or Most Recently Relevant to Health Maintenance Results * TSH W/RFLX FREE T4 Routine (05/10/2025 9:10 AM EDT) TSH W/REFLEX TO FT4 1.72 0.40 - 4.50 mIU/L 05/11/2025 6:33 AM EDT [facility] Blood Blood / Unknown 05/10/2025 9 :10 AM EDT 05/11/2025 4:09 AM EDT [employer] - 05/11/2025 6:57 AM EDT FASTING:YES Shannan Silva PA-C LAB - BLOOD DRAW Final Resul t Performing Organization Address [facility] Co de Phone Number [email or web address] [address] [place] [phone], [employer] [address] [phone] * MICROALBUMIN/CREATININE RATIO, URINE, RANDOM Urine Routine (05/10/2025 9:10 AM EDT) CREATININE, RANDOM URINE 183 20 - 320 mg/dL 05/11/2025 4:55 PM EDT [facility] MICROALBUMIN 3.9 mg/dL 05/11/2025 4:55 PM EDT [facility] MICROALBUMIN/CRE ATININE RATIO, RANDOM URINE 21 <30 mg/g creat 05/11/2025 4:55 PM EDT [facility] Urine Urine specimen / Unknown 05/10/2025 9:10 AM EDT 05/11/2025 3:00 AM EDT [employer] - 05/11/2025 5:04 PM EDT FASTING:YES Reference [...] patient to be within a diagnostic category. us Shannan Silva PA-C LAB URINE AMBULATORY Final R esult Performing Organization Address [facility]/ZIP Co de Phone Number [facility] [address] [address], [employer] [address] [phone] * (ABNORMAL) BLOOD COUNT COMPLETE AUTO&AUTO DIFRNTL WBC Routine (05/10/2025 9:10 AM EDT) WHITE BLOOD CELL COUNT 7.4 3.8 - 10.8 Thousand/ uL 05/11/2025 3:08 AM EDT [facility] RED BLOOD CELL COUNT 4.87 4.20 - 5.80 Million/u L 05/11/2025 3:08 AM [facility] HEMOGLOBIN 14.3 13.2 - 17.1 g/dL 05/11/2025 3:08 AM [facility] HEMATOCRIT 43.3 38.5 - 50.0 % 05/11/2025 3:08 AM [facility] MCV 88.9 80.0 - 100.0 fL 05/11/2025 3:08 AM [facility] MCH 29.4 27.0 - 33.0 pg 05/11/2025 3:08 AM [facility] MCHC 33.0 32.0 - 36.0 g/dL 05/11/2025 3:08 AM [facility] RDW 12.9 11.0 - 15.0 % 05/11/2025 3:08 AM [facility] PLATELET COUNT 437(H) 140 - 400 Thousand/ uL 05/11/2025 3:08 AM [facility] MPV 9.7 7.5 - 12.5 fL 05/11/2025 3:08 AM [facility] ABSOLUTE NEUTROPHILS 3,774 1,500 - 7,800 cells/uL 05/11/2025 3:08 AM [facility] ABSOLUTE LYMPHOCYTES 2,842 850 - 3,900 cells/uL 05/11/2025 3:08 AM [facility] ABSOLUTE MONOCYTES 503 200 - 950 cells/uL 05/11/2025 3:08 AM [facility] ABSOLUTE EOSINOPHILS 222 15 - 500 cells/uL 05/11/2025 3:08 AM [facility] ABSOLUTE BASOPHILS 59 0 - 200 cells/uL 05/11/2025 3:08 AM [facility] NEUTROPHILS PCT 51 % 3:08 AM [facility] LYMPHOCYTES 38.4 % 05/11/2025 3:08 AM [facility] MONOCYTES 6.8 % 05/11/2025 3:08 AM [facility] EOSINOPHILS 3.0 % 05/11/2025 3:08 AM [facility] BASOPHILS 0.8 % 05/11/2025 3:08 AM EDT [facility] Blood Blood / Unknown 05/10/2025 9 :10 AM EDT 05/11/2025 2:53 AM EDT [employer] - 05/11/2025 3:09 AM EDT FASTING:YES For adults, a slight decrease in the calculated MCHC value (in the range of 30 to 32 g/dL) is most likely not clinically significant; however, it should be interpreted with caution in correlation with other red cell parameters and the patient's clinical condition. us Shannan Silva PA-C LAB - BLOOD DRAW Final Resul t Performing Organization Address [facility] de Phone Number [email or web address] [address] [place] [phone], [employer] [address] [place] [phone] * (ABNORMAL) HEMOGLOBIN GLYCOSYLATED A1C Routine (05/10/2025 9:10 AM EDT) HEMOGLOBIN A1C 6.2(H) <5.7 % 05/11/2025 6:08 AM EDT [facility] Blood Blood / Unknown 05/10/2025 9 :10 AM EDT 05/11/2025 2:53 AM EDT [email or web address] - 05/11/2025 6:17 AM EDT FASTING:YES For [...] for diagnosis of diabetes for children. . us Shannan Silva PA-C LAB - BLOOD DRAW Final Resul t Performing Organization Address [facility] Co de Phone Number [email or web address] [address] [place] [phone], [employer] [address] [place] [phone] * (ABNORMAL) Vitamin D, 25-Hydroxy Routine (05/10/2025 9:10 AM EDT) VITAMIN D, 25-OH, TOTAL 14(L) 30 - 100 ng/mL 05/11/2025 6:33 AM EDT [facility] Blood Blood / Unknown 05/10/2025 9 :10 AM EDT 05/11/2025 4:09 AM EDT Narrative [facility] [employer] - 05/11/2025 6:57 AM EDT FASTING:YES Vitamin D Status 25-OH Vitamin D: . Deficiency: <20 ng/mL Insufficiency: 20 - 29 ng/mL Optimal: > or = 30 ng/mL . For 25-OH Vitamin D testing on patients on D2-supplementation and patients for whom quantitation of D2 and D3 fractions is required, the QuestAssureD(TM) 25-OH VIT D, (D2,D3), LC/MS/MS is recommended: order code 62316 (patients >2yrs). . See Note 1 . Note 1 . For additional information, please refer to http://education.tipple.me/faq/LBI485 (This link is being provided for informational/ educational purposes only.) Shannan Silva PA-C LAB - BLOOD DRAW Final Resul t [facility] [address] [address], [facility] [address] [place] [address] * (ABNORMAL) LIPID PANEL Routine (05/10/2025 9:10 AM EDT) CHOLESTEROL, TOTAL 221(H) <200 mg/dL 05/11/2025 5:19 AM EDT [facility] HDL CHOLESTEROL 47 > OR = 40 mg/dL 05/11/2025 5:19 AM EDT [facility] TRIGLYCERIDES 161(H) <150 mg/dL 05/11/2025 5:19 AM EDT [facility] LDL-CHOLESTEROL 144(H) mg/dL (calc) 05/11/2025 5:19 AM EDT [facility] CHOL/HDLC RATIO 4.7 <5.0 (calc) 05/11/2025 5:19 AM EDT [facility] NON-HDL CHOLESTEROL 174(H) <130 mg/dL (calc) 05/11/2025 5:19 AM EDT [facility] Blood Blood / Unknown 05/10/2025 9 :10 AM EDT 05/11/2025 4:09 AM EDT Narrative [facility] [facility] - 05/11/2025 5:24 AM EDT FASTING:YES Reference [...] LDL-C. Cayetano SS et al. ANAT. 2013;310(19): 1616-1864 (http://education.tipple.me/faq/ZZE736) For patients with diabetes plus 1 major ASCVD risk factor, treating to a non-HDL-C goal of <100 mg/dL (LDL-C of <70 mg/dL) is considered a therapeutic option. Shannan Silva PA-C LAB - BLOOD DRAW Final Resul t [facility] [address] [address], [facility] [address] [phone] * (ABNORMAL) COMPREHENSIVE METABOLIC PANEL Routine (05/10/2025 9:10 AM EDT) GLUCOSE 118(H) 65 - 99 mg/dL 05/11/2025 5:19 AM EDT [facility] UREA NITROGEN (BUN) 11 7 - 25 mg/dL 05/11/2025 5:19 AM EDT [facility] CREATININE (blood) 0.81 0.60 - 1.26 mg/dL 05/11/2025 5:19 AM EDT [facility] EGFR 121 > OR = 60 mL/min/1. 73m2 05/11/2025 5:19 AM [facility] BUN/CREATININE RATIO SEE NOTE: 6 - 22 (calc) 05/11/2025 5:19 AM [facility] SODIUM 139 135 - 146 mmol/L 05/11/2025 5:19 AM [facility] POTASSIUM 4.6 3.5 - 5.3 mmol/L 05/11/2025 5:19 AM [facility] CHLORIDE 103 98 - 110 mmol/L 05/11/2025 5:19 AM [facility] CARBON DIOXIDE 29 20 - 32 mmol/L 05/11/2025 5:19 AM [facility] CALCIUM 10.1 8.6 - 10.3 mg/dL 05/11/2025 5:19 AM [facility] PROTEIN, TOTAL 8.1 6.1 - 8.1 g/dL 05/11/2025 5:19 AM [facility] ALBUMIN 4.9 3.6 - 5.1 g/dL 05/11/2025 5:19 AM [facility] GLOBULIN 3.2 1.9 - 3.7 g/dL (calc) 05/11/2025 5:19 AM [facility] ALBUMIN/GLOBULI N RATIO 1.5 1.0 - 2.5 (calc) 05/11/2025 5:19 AM [facility] BILIRUBIN, TOTAL 0.5 0.2 - 1.2 mg/dL 05/11/2025 5:19 AM [facility] ALKALINE PHOSPHATASE 55 36 - 130 U/L 05/11/2025 5:19 AM [facility] AST 21 10 - 40 U/L 05/11/2025 5:19 AM [facility] ALT 37 9 - 46 U/L 05/11/2025 5:19 AM [facility] Blood Blood / Unknown 05/10/2025 9 :10 AM EDT 05/11/2025 4:09 AM EDT [facility]. [facility] - 05/11/2025 5:24 AM EDT FASTING:YES . Fasting reference interval . For someone without known diabetes, a glucose value between 100 and 125 mg/dL is consistent with prediabetes and should be confirmed with a follow-up test. . Not Reported: BUN and Creatinine are within reference range. . Shannan Silva PA-C LAB - BLOOD DRAW Final Resul t [facility] [address] [address], [facility] [address] [phone] * [facility] REPORT (01/23/2025 3:00 AM EDT) 01/23/2025 3:00 AM EDT Shannan Silva PA-C SCAN PROCEDURES Final Result * HIV 1/2 AG & AB W/RFLX (4TH GEN) (07/30/2021 10:30 AM EST) HIV AG/AB, 4TH GEN NON-REAC TIVE NON-REAC TIVE [facility] Comment: HIV-1 antigen and HIV-1/HIV-2 antibodies were not detected. There is no laboratory evidence of HIV infection. PLEASE NOTE: This information has been disclosed to you from records whose confidentiality may be protected by state law. If your state requires such protection, then the state law prohibits you from making any further disclosure of the information without the specific written consent of the person to whom it pertains, or as otherwise permitted by law. A general authorization for the release of medical or other information is NOT sufficient for this purpose. For additional information please refer to http://education.Medical Depot.Wami/faq/GIY915 (This link is being provided for informational/ educational purposes only.) The performance of this assay has not been clinically validated in patients less than 2 years old. Blood Blood / Unknown 07/30/2021 1 0:30 AM EST 07/30/2021 10:31 AM EST Narrative [facility] - 07/31/2021 6:10 AM EST PATIENT UNABLE TO VOID; ADVISED TO RETURN FOR COLLECTION. Beatriz HEARN-C LAB - BLOOD DRAW Final R esult [facility] [address] [address], [facility] [address] [address] * HEPATITIS A,B,C PANEL (07/29/2014 4:50 PM EST) HEPATITIS B SURFACE ANTIGEN NEGATIVE NEGATIVE [facility] HEPATITIS C VIRUS ANTIBODY NEGATIVE NEGATIVE [facility] HEPATITIS A ANTIBODY TOTAL NEGATIVE NEGATIVE [facility] HEPATITIS B CORE ANTIBODY NEGATIVE NEGATIVE [facility] HEPATITIS B SURFACE ANTIBODY NEGATIVE NEGATIVE [facility] Blood specimen (specimen) Blood / Unknown 07/29/2014 4:50 PM EST 07/29/2014 4:52 PM EST Narrative [facility] - 07/30/2014 8:53 AM EST [facility] [address] [place] [address] PT ID [id number] ORD# [id number] Shannan YAC LAB - BLOOD DRAW Edited Resu lt - Final Performing Organization Address City/[facility]/ZIP Co de Phone Number [address] [address], from Last 3 Months or Most Recently Relevant to Health Maintenance Insurance [employer] D[employer] Member Subscriber Plan / Payer (Ef fective 2021-Present) Name:Dexter Jones Relation to Subscriber:Self Name:Dexter Jones Payer ID:[id number] (NAIC) Group ID:Not on file Type:Indemnity Address: [address]/ [place] [facility] Care Teams Fishing Game Warden Relationship Specialty Start Date End Date Shannan Silva PA-C [address] [place] [phone] PCP - General Internal Medicine 05/19/15
== END 2025-05-13 10:52 | disposition home or self-care (01) ==
LOC: HO.HSMS 09:56
PROVIDERS: PCP Physician Assistant; Visit Provider Physician Assistant Medical
DX: G25.81 Restless legs syndrome (principal)
CPT/HCPCS: 99214

== ENCOUNTER 2025-05-13 09:56 | Outpatient (REF) | payer BC, SELFPAY ==
[2025-05-13 14:33] LABS: Ferritin 130 ng/mL (20-250)
[2025-05-13 18:39] LABS: Folate 7.8 ng/mL (> or = 4.0); Vitamin B12 331 pg/mL (200-900)
== END 2025-05-13 09:57 | disposition home or self-care (01) ==
LOC: HO.HKASLDS 09:56
PROVIDERS: PCP Physician Assistant; Visit Provider Physician Assistant Medical
DX: G47.33 Obstructive sleep apnea (adult) (pediatric) (principal); G25.81 Restless legs syndrome; E11.9 Type 2 diabetes mellitus without complications; Z79.85 Long-term (current) use of injectable non-insulin antidiabetic drugs; R53.83 Other fatigue; Z13.6 Encounter for screening for cardiovascular disorders
CPT/HCPCS: 36415; 82306; 82607; 82728; 82746; 83090; 83921; 84207; 84425